=== PATIENT | male | born 1975 | race Caucasian/White ===

== ENCOUNTER → 2016-12-07 | Outpatient (CLI) | payer BC ==
[~2016-12-07] VITALS: Ht 181.6 cm; Wt 112.7 kg
[~2016-12-07] MED LIST: AZEL0.055; Effexor PO; MONT1TAB3 PO; MULT-506 PO; Zyrtec PO; fluticasone INH
[2016-12-07 15:00] VITALS: BP 145/95; PULSE 90; Ht 181.6 cm; Wt 112.7 kg
== END | disposition home or self-care (01) ==
LOC: C.NEUR 14:26
PROVIDERS: ATTEND Internal Medicine Pulmonary Disease
DX: G47.30 Sleep apnea, unspecified (principal)

== ENCOUNTER → 2017-06-07 | Outpatient (CLI) | payer BC ==
[~2017-06-07] VITALS: Ht 180.3 cm; Wt 111.6 kg
[2017-06-07 15:34] VITALS: BP 135/91; PULSE 90; Ht 180.3 cm; Wt 111.6 kg
== END | disposition home or self-care (01) ==
LOC: C.NEUR 13:03
PROVIDERS: ATTEND Physician Assistant
DX: G47.30 Sleep apnea, unspecified (principal)

== ENCOUNTER → 2017-12-17 | Outpatient (CLI) | payer OTHER ==
--- NOTE | 2017-12-17 12:17 | DIAGNOSTIC IMAGING REPORT ---
CHEST 2 VIEWS ROUTINE HISTORY: Acute bronchitis with bronchospasm COMPARISON: Chest CT 09/14/2007. FINDINGS: The lungs are clear. The heart is top normal in size. No pleural effusions. No pneumothorax. IMPRESSION: No acute process. Electronically signed by: Raoul Bedolla M.D. 12/17/2017 12:16 PM Dictated Date/Time: 12/17/2017 12:14 PM
== END | disposition home or self-care (01) ==
LOC: C.RADBC 11:24
PROVIDERS: ATTEND Family Medicine Adult Medicine
DX: J20.9 Acute bronchitis, unspecified (principal)